=== PATIENT | male | born 1990 | race Caucasian/White ===

== ENCOUNTER 2017-02-09 12:41 | Emergency (ER) | payer BC ==
[2017-02-09 12:49] VITALS: BP 134/78; PULSE 90; RESP 18; TEMP 97.9; O2SAT 96
--- NOTE | 2017-02-09 12:55 | EDPHY ---
H & P Stated Complaint: sore throat swollen tonsills Time Seen by Provider: 02/09/17 12:55 - Personal History Current Tetanus/Diphtheria Vaccine: Yes - Medical/Surgical History Hx Asthma: No Hx Chronic Respiratory Disease: No Hx Diabetes: No Hx Cardiac Disease: No Hx Renal Disease: No Hx Cirrhosis: No Hx Alcoholism: No Hx HIV/AIDS: No Hx Splenectomy or Spleen Trauma: No Other PMH: denies - Social History Smoking Status: Current every day smoker Constitutional: Initial Vital Signs Temperature (C) 36.6 C 02/09/17 12:47 Heart Rate 90 02/09/17 12:47 Respiratory Rate 18 02/09/17 12:47 Blood Pressure 134/78 H 02/09/17 12:47 O2 Sat (%) 96 02/09/17 12:47 O2 Delivery Mode Room Air Allergies/Adverse Reactions: No Known Allergies Allergy (Unverified 02/09/17 12:47) Home Medications: Medication Instructions Recorded NK [No Known Home Meds] 02/09/17 Medical Decision Making ED Course/Re-evaluation: CHIEF COMPLAINT: Sore throat, swollen tonsils HISTORY OF PRESENT ILLNESS: REVIEW OF SYSTEMS: A 10 point review of systems was performed and is negative with the exception of the elements mentioned in the history of present illness. PHYSICAL EXAM: HR, BP, O2 Sat, RR. Temp noted General Appearance: Alert, well hydrated, appropriate, and non-toxic appearing. Head: Atraumatic without scalp tenderness or obvious injury Eyes: Pupils equal, round, reactive to light and accommodation, EOMI, no trauma , no injection. Ears: Clear bilaterally, no perforation, normal landmarks Nose: Atraumatic, no rhinorrhea, clear. Throat: There is no erythema or exudates, no lesions, normal tonsils, mucus membranes moist. Neck: Supple, 2+ carotid upstroke, nontender, no lymphadenopathy. Respiratory: No retractions, no distress, no wheezes, and no accessory muscle use. Lungs are clear to auscultation bilaterally. Cardiovascular: Regular rate and rhythm, no murmurs, rubs, or gallops. Bilateral carotid, radial, dorsalis pedis, and posterior tibial pulses intact. Good capillary refill all extremities. Gastrointestinal: Abdomen is soft, nontender, non-distended, no masses, no rebound, no guarding, no peritoneal signs. Musculoskeletal: Normal active ROM of all extremities, atraumatic. Neurological: Alert, appropriate, and interactive. Non-focal neuro. Skin: No rashes, good turgor, no nodules on palpation. Past medical history: Past surgical history: Family history: Social history: DIAGNOSTICS/PROCEDURES/CRITICAL CARE TIME: DIFFERENTIAL DIAGNOSIS: MEDICAL DECISION MAKING: Departure - Departure Referrals: NONE *PRIMARY CARE P,. [Primary Care Provider] - As per Instructions Report Scribed for: Alexx Fernandes Report Scribed by: Rosi Martinez Date of Report: 02/09/17 Time of Report: 12:58
--- NOTE | 2017-02-09 13:23 | EDPHY ---
General Time Seen by Provider: 02/09/17 12:55 Narrative: CHIEF COMPLAINT: Sore throat, cough HISTORY OF PRESENT ILLNESS: Patient complains of sore throat, cough, runny nose. Gradual onset several days ago. Constant duration. Associated with some tender lymph nodes. No difficulty swallowing. No chest pain. The cough is productive. No improvement with [id number] medications. Rated as mild to moderate. Starting to improve today. Does continue to smoke cigarettes. No headache. No neck pain or stiffness. No other associated complaints or modifying factors REVIEW OF SYSTEMS: Ten systems reviewed and are negative unless otherwise noted in the HPI PCP: None currently SPECIALISTS: None PAST MEDICAL HISTORY: Denies PAST SURGICAL HISTORY: Denies SOCIAL HISTORY: Every day smoker. Works as a cook FAMILY HISTORY: Noncontributory EXAMINATION General Appearance: Alert, no distress Head: normocephalic, atraumatic Eyes: Pupils equal and round, no conjunctival pallor or injection ENT, Mouth: Mucous membranes moist. Uvula is midline. Airway is widely patent. There is posterior erythema but no edema. The tonsils are symmetric. No exudate. Neck: Normal inspection, supple, non-tender. Painless range of motion all planes. No meningismus. Respiratory: Mild rhonchi. No wheezing. No crackles. No diminishment. No distress. Cardiovascular: Regular rate and rhythm. No murmur Neurological: A&O, nonfocal, GCS 15 Skin: Warm and dry, no rash. No petechiae or purpura Extremities: Nontender, no pedal edema Psychiatric: Mood and affect normal DIFFERENTIAL DIAGNOSES: Including but not limited to strep pharyngitis, viral pharyngitis, acute bronchitis, viral bronchitis, pneumonia MDM: 1:20 p.m. Acute pharyngitis with mild uncomplicated bronchitis. The patient is a smoker. I have elected to treat him presumptively with Zithromax. I do not feel he warrants chest x-ray at this time. His vital signs are within normal limits. We discussed smoking cessation, anti-inflammatories, rest, increase fluid intake. We discussed antibiotics to completion. Also provide him with the on- call primary care physician to establish. We discussed ED precautions. He is comfortable with this plan and discharged home stable condition. SUPERVISION: This patient was independently evaluated without direct involvement of or examination by the attending physician. - History Smoking Status: Current every day smoker - Objective Vital Signs: Initial Vital Signs Temperature (C) 97.9 F 02/09/17 12:47 Heart Rate 90 02/09/17 12:47 Respiratory Rate 18 02/09/17 12:47 Blood Pressure 134/78 H 02/09/17 12:47 O2 Sat (%) 96 02/09/17 12:47 O2 Delivery Mode Room Air Allergies/Adverse Reactions: No Known Allergies Allergy (Unverified 02/09/17 12:47) Home Medications: Medication Instructions Recorded Acetaminophen/Codeine 300/30Mg 1 each PO Q6 PRN #13 tab 02/09/17 [Tylenol #3 (*)] Azithromycin [Zithromax] 250 mg PO DAILY #6 tab 02/09/17 Departure - Departure Disposition: Home, Routine, Self-Care Clinical Impression: Tobacco dependence Acute pharyngitis Qualifiers: Pharyngitis/tonsillitis etiology: unspecified etiology Qualified Code(s): J02.9 - Acute pharyngitis, unspecified Acute bronchitis Qualifiers: Bronchitis organism: unspecified organism Qualified Code(s): J20.9 - Acute bronchitis, unspecified Condition: Good Instructions: Pharyngitis (ED), How to Stop Smoking (ED), Acute Bronchitis (ED) Additional Instructions: 1. Anti-inflammatories [id number] as discussed for the next 7 days 2. Recommend smoking cessation 3. Contact the on-call primary care physician Dr. Barajas to establish 4. Medications as prescribed to completion 5. ED precautions as discussed Referrals: Sundar Barajas MD [Medical Doctor] - As per Instructions Stand Alone Forms: Work Excuse Prescriptions: Acetaminophen/Codeine 300/30Mg [Tylenol #3 (*)] 1 each PO Q6 PRN #13 tab PRN Reason: Pain, Mild Azithromycin [Zithromax] 250 mg PO DAILY #6 tab
== END 2017-02-09 13:31 | disposition home or self-care (01) ==
DX: J02.9 Acute pharyngitis, unspecified (principal); J20.9 Acute bronchitis, unspecified; F17.200 Nicotine dependence, unspecified, uncomplicated

== ENCOUNTER 2018-03-22 11:38 | Emergency (ER) | payer BC, OTHER ==
[2018-03-22] MEDS ORDERED: DEXAMETHASONE 4 MG TAB PO ONE (12:11)
[2018-03-22] MEDS ORDERED: ACETAMINOPHEN 500 MG TAB PO ONE (12:12)
[2018-03-22] MEDS ORDERED: BICILLIN C-R 1200000 UNIT/2 ML SYRINGE IM ONE (12:41)
--- NOTE | 2018-03-22 12:45 | EDPHY ---
General Time Seen by Provider: 03/22/18 11:51 Narrative: CLINICAL IMPRESSION: Strep tonsillitis ASSESSMENT/PLAN: A 27-year-old male presents to the emergency department with 2 days of sore throat, subjective fever, chills and myalgias. On exam, patient has bilateral symmetric exudate of tonsils with no asymmetry or clinical suggestion of peritonsillar abscess, retropharyngeal abscess, uvulitis, or epiglottitis. Rapid strep test is positive. Treatment options discussed. Patient has elected be treated with IM Bicillin. He also received a dose of Decadron. Vital signs improved after antipyretic therapy. Patient was able to tolerate secretions well. No signs of severe dehydration. PCP follow-up recommended, warning signs return to ED sooner alignment discharge. DIFFERENTIAL DX: Differential includes but not limited to exudative tonsillitis, peritonsillar abscess, viral syndrome, retropharyngeal abscess, epiglottitis, Link's angina ED PROCEDURES: See lab and/or imaging results below ED COURSE: 12:40 p.m.:. Strep test positive. Results discussed with patient. He elects to be treated with IM Bicillin. CHIEF COMPLAINT: Sore throat, fever, body aches HPI: 27-year-old otherwise healthy male presents to the emergency department 2 days of sore throat, subjective fever and chills, and myalgias. He reports painful swallowing but is able to tolerate his secretions. No history of chronic strep throat or prior peritonsillar abscess. No neck swelling or difficulty with movement. No recent dental work. No cough, shortness of breath or underlying history of asthma. He has taken [id number]-elr-[id number] medications without significant improvement. He is supposed to go to [place] in 3 days. PAST MEDICAL HISTORY: None reported See triage summary and nurse notes for addition applicable history Pertinent Past Surgical History: None reported Family History: Noncontributory Social History: Nonsmoker REVIEW OF SYSTEMS: A full 10 point review of systems was negative except for those mentioned in HPI. PHYSICAL EXAM: General Appearance: Alert, oriented, appropriate, cooperative, NAD, well hydrated, non-toxic appearing, VSS, no hypoxia. HEENT: TMs are clear bilaterally no perforation or FB, no injection, no evidence of serous or mucopurulent otitis. Oropharynx clear with bilateral symmetric tonsillar erythema and exudates. No evidence of uvulitis, peritonsillar abscess or retropharyngeal abscess Dentition without abnormality. Eyes: PERRLA, no acute vision change, nystagmus, swelling, discharge, pain or photosensitivity. Conjunctiva pink, no pallor or injection Neck: Supple, nontender, no lymphadenopathy, no midline pain, FROM, no meningismus. Respiratory: There are no retractions, lungs are clear to auscultation. Cardiac: Regular rate and rhythm, no murmurs or gallops. Skin: Warm, dry, no rashes, no nodules on palpation. MEDICAL DECISION MAKING: Patient was seen independently. Secondary supervising physician at time of evaluation was: Dr. Page . Diagnosis: Strep tonsillitis. New, requires workup Summary: See Assessment and Plan for summary of ED visit Clinical lab tests: ordered / reviewed. Patient Progress: Improved. - History Smoking Status: Heavy smoker - Objective Vital Signs: Initial Vital Signs Temperature (C) 36.9 C 03/22/18 11:41 Heart Rate 102 H 03/22/18 11:41 Respiratory Rate 18 03/22/18 11:41 Blood Pressure 134/92 H 03/22/18 11:41 O2 Sat (%) 95 03/22/18 11:41 O2 Delivery Mode Room Air Allergies/Adverse Reactions: No Known Allergies Allergy (Unverified 03/22/18 11:43) Home Medications: Medication Instructions Recorded Hydrocodone/APAP 5/325 [[facility] 1 - 2 tab PO Q4H PRN #10 tab 03/22/18 5/325 (*)] Microbiology Results: MICROBIOLOGY 03/22/18 11:45 Nasal, Sinus - Swab Respiratory Panel (PCR) - Final Coronavirus 229E Detected Medications Given: Discontinued Medications Acetaminophen (Tylenol) 1,000 mg PO EDNOW ONE Stop: 03/22/18 12:13 Last Admin: 03/22/18 12:16 Dose: 1,000 mg Dexamethasone (Decadron) 12 mg PO EDNOW ONE Stop: 03/22/18 12:12 Last Admin: 03/22/18 12:15 Dose: 12 mg Penicillin G Procaine/Benzathine (Bicillin C-R 1.2mm Units Syr) 1,200,000 unit IM ONCE ONE PRN Reason: Protocol Stop: 03/22/18 12:42 Last Admin: 03/22/18 13:09 Dose: 1,200,000 unit Departure - Departure Disposition: Home, Routine, Self-Care Clinical Impression: Strep tonsillitis Condition: Fair Instructions: Hydrocodone/Acetaminophen (By mouth), Tonsillitis (ED) Additional Instructions: DISCHARGE INSTRUCTIONS FROM YOUR DOCTOR Thank you for visiting our emergency department today. Please keep in mind that discharge from the emergency department does not mean that there is nothing wrong - it simply means that we have not identified an emergency condition that requires further evaluation or treatment in the hospital. You should always plan to follow up with primary care for re-evaluation of your condition in the next 2-3 days. If you have been referred to a specialist, please call as soon as possible (today or tomorrow) to schedule your follow up appointment at the appropriate time. YOUR STREP TEST WAS POSITIVE. HE RECEIVED IM BICILLIN. YOUR CONTAGIOUS FOR 24 HR. A WORK NOTE WAS GIVEN TO EXCUSE YOUR FROM WORK TOMORROW. PLEASE DRINK PLENTY OF FLUIDS, USE TYLENOL AND IBUPROFEN FOR PAIN AND FEVER CONTROL. USE PAIN MEDICATION ONLY IF NEEDED FOR BREAKTHROUGH PAIN. DO NOT DRIVE OR DRINK ALCOHOL WHILE TAKING NARCOTIC PAIN MEDICATION. PLEASE BE AWARE, NARCOTICS CAN CAUSE CONSTIPATION, LETHARGY, AND INCREASE YOUR RISK OF FALLING. DO NOT TAKE TYLENOL AT THE SAME TIME VICODIN OR PERCOCET. RETURN TO THE EMERGENCY DEPARTMENT FOR SEVERE THROAT PAIN, DIFFICULTY SWALLOWING YOUR SECRETIONS, NECK PAIN OR SWELLING, UNILATERAL THROAT PAIN OR SWELLING, PERSISTENT HIGH FEVERS OR ANY OTHER CONCERNS. People present with illnesses and injuries in different ways, and it is always possible that we have missed something. You may always return for re-evaluation if symptoms worsen or if they are not improving or if you develop new/different symptoms. Again, thank you for choosing our emergency department. We hope that you feel better. Referrals: NONE *PRIMARY CARE P,. [Primary Care Provider] - As per Instructions Stand Alone Forms: Work Excuse Prescriptions: Hydrocodone/APAP 5/325 [[facility] 5/325 (*)] 1 - 2 tab PO Q4H PRN #10 tab PRN Reason: Pain, Moderate
[2018-03-22 13:14] VITALS: BP 128/76
== END 2018-03-22 13:14 | disposition home or self-care (01) ==
DX: J03.00 Acute streptococcal tonsillitis, unspecified (principal)
CPT/HCPCS: J0558